=== PATIENT | female | born 1950 | race Hispanic/Latino ===

== ENCOUNTER → 2017-07-11 | Outpatient (CLI) | payer MEDICARE ==
[~2017-07-11] MED LIST: CALCIUM600 MG PO; LIPITOR10 MG PO; LOSARTAN POTAS100 MG PO; METFORMIN HCL500 M1 PO; TYLENOL # 31 EA; VESICARE5 MG PO; VITAMIN D32000 UNI1 PO
--- NOTE | 2017-07-18 10:25 | Diagnostic Imaging Report ---
#[id number] - [facility] #BILATERAL DIGITAL SCREENING MAMMOGRAM WITH CAD: 07/11/2017 CLINICAL: Routine screening. No prior exams were available for comparison. Current study contains 4 films. The tissue of both breasts is predominantly fatty. Current study was also evaluated with a Computer Aided Detection (CAD) system. Benign calcifications in the right axilla. No significant masses, calcifications, or other findings are seen in either breast. IMPRESSION: BENIGN There is no mammographic evidence of malignancy. A 1 year screening mammogram is recommended. The patient will be notified by letter of the results. Rickey Barlow Jr., D.O. cw/:07/15/2017 14:51:49 Personnel Supervisor: Chanell COLEMAN(R)(M), [facility] letter sent: Normal Exam Mammogram BI-RADS: 2 Benign
== END ==
LOC: MAMMO 09:22
PROVIDERS: ATTEND Obstetrics & Gynecology Obstetrics
DX: Z12.31 Encounter for screening mammogram for malignant neoplasm of breast (principal)

== ENCOUNTER 2018-12-09 01:25 | Emergency (ER) | payer MEDICARE ==
[~2018-12-09] VITALS: Ht 149.9 cm; Wt 74.8 kg
[~2018-12-09 01:25] MED LIST changes: +ARICEPT5 MG PO; +COLACE100 M1 PO; +IBUPROFEN600 MG PO; +MACROBID 100 M100 MG PO; +NAMENDA10 MG; +PRAVASTATIN SOD40 MG; +PYRIDIUM100 MG PO; +TYLENOL WITH C1 EACH PO
== END 2018-12-09 02:21 | disposition home or self-care (01) ==
LOC: FSED 01:25
DX: S90.461A Insect bite (nonvenomous), right great toe, initial encounter (principal); L03.031 Cellulitis of right toe
CPT/HCPCS: 99282

== ENCOUNTER 2021-09-23 17:11 | Emergency (ER) | payer MEDICARE ==
[~2021-09-23] VITALS: Ht 149.9 cm; Wt 74.8 kg
[2021-09-23 18:13] LABS: CLARITY,URINE HAZY (CLEAR); COLOR,URINE YELLOW (YELLOW); KETONES,URINE NEGATIVE (NEGATIVE); LEUKOCYTE ESTERASE ,URINE NEGATIVE (NEGATIVE); NITRITE,URINE NEGATIVE (NEGATIVE); PROTEIN,URINE DIPSTICK NEGATIVE (NEGATIVE); URINE UROBILINOGEN 0.2 mg/dL (0.2 - 1)
[2021-09-23 18:18] LABS: BASOPHILS # (AUTO) 0.1 (0.0-0.1); BASOPHILS % 0.6 % (0.0-1.0); EOSINOPHILS # (AUTO) 0.4 (0.0-0.4); EOSINOPHILS % 4.6 % (0.0-6.0); HEMATOCRIT 33.2 % (34.2-44.1); HEMOGLOBIN 10.8 g/dL (12.0-16.0); LYMPHOCYTES # (AUTO) 1.5 (1.0-3.2); LYMPHOCYTES % 18.4 % (18.0-39.1); MEAN CORPUSCULAR HEMOGLOBIN 30.3 pg (28-32); MEAN CORPUSCULAR HGB CONC 32.5 g/dL (31-35); MONOCYTES # (AUTO) 0.7 (0.2-0.8); MONOCYTES % 8.8 % (4.4-11.3); NEUTROPHILS # (AUTO) 5.6 (2.1-6.9); NEUTROPHILS % 67.4 % (38.7-80.0); PLATELET COUNT 217 x10e3/uL (140-360); RED BLOOD COUNT 3.57 x10e6/uL (3.6-5.1); RED CELL DISTRIBUTION WIDTH 13.5 % (11.7-14.4)
[2021-09-23 18:24] LABS: BACTERIA,URINE MODERATE /HPF; EPITHELIAL CELLS,URINE MANY /LPF
[2021-09-23 18:37] LABS: ALBUMIN 3.4 g/dL (3.5-5.0); ALBUMIN/GLOBULIN RATIO 0.9 (0.8-2.0); ANION GAP 13.6 mmol/L (8-16); CALCIUM 8.7 mg/dL (8.4-10.2); CREATININE, SERUM 1.42 mg/dL (0.57-1.11); POTASSIUM 3.6 mmol/L (3.5-5.1)
[2021-09-23] MEDS ORDERED: IOPAMIDOL 370 MG/ML 100 ML INFUS..BTL INJ ONE (18:55)
[2021-09-23] MEDS ORDERED: SODIUM CHLORIDE 0.9% 1000ML 1,000 ML IV STA (19:23)
[2021-09-23] MEDS ORDERED: PROTONIX20 MG PO (20:13)
[2021-09-23 20:32] VITALS: BP 113/56
== END 2021-09-23 20:35 | disposition home or self-care (01) ==
LOC: ER 17:30
DX: K92.2 Gastrointestinal hemorrhage, unspecified (principal); I10 Essential (primary) hypertension; E11.9 Type 2 diabetes mellitus without complications
CPT/HCPCS: 36415; 74174; 80053; 81001; 83690; 85025; 93005; 99284; Q9967

== ENCOUNTER 2023-03-11 17:41 | Emergency (ER) | payer MEDICARE ==
[~2023-03-11] VITALS: Ht 149.9 cm; Wt 64.2 kg
[~2023-03-11 17:41] MED LIST changes: +PROTONIX20 MG PO
[2023-03-11] MEDS ORDERED: GEMTESA75 MG (18:14)
[2023-03-11 20:00] VITALS: O2SAT 98
[2023-03-11] MEDS ORDERED: DICYCLOMINE HCL20 MG PO (20:07)
[2023-03-11] MEDS ORDERED: ONDANSETRON ODT4 MG PO (20:08)
== END 2023-03-11 20:29 | disposition home or self-care (01) ==
LOC: FSED 17:46
DX: R10.84 Generalized abdominal pain (principal); K80.20 Calculus of gallbladder without cholecystitis without obstruction; E11.65 Type 2 diabetes mellitus with hyperglycemia; I10 Essential (primary) hypertension; F03.90 Unspecified dementia, unspecified severity, without behavioral disturbance, psychotic disturbance, mood disturbance, and anxiety; E78.5 Hyperlipidemia, unspecified; K21.9 Gastro-esophageal reflux disease without esophagitis
CPT/HCPCS: 71046; 74176; 80048; 80076; 81003; 82553; 84484; 85025; 93005; 99284

== ENCOUNTER 2024-08-20 11:56 | Emergency (ER) | payer MEDICARE ==
[~2024-08-20] VITALS: Ht 149.9 cm; Wt 64.0 kg
[~2024-08-20 11:56] MED LIST changes: +DICYCLOMINE HCL20 MG PO; +GEMTESA75 MG; +ONDANSETRON ODT4 MG PO
[2024-08-20 12:02] VITALS: TEMP 97.9
[2024-08-20] MEDS: LIDOCAINE HCL 1% LOCAL INJ 20 ML VIAL INJ ONE (13:16)
[2024-08-20 14:02] LABS: BASOPHILS % 0.5 % (0.0-1.0); EOSINOPHILS # (AUTO) 0.1 (0.0-0.4); EOSINOPHILS % 1.7 % (0.0-6.0); HEMATOCRIT 38.8 % (34.2-44.1); LYMPHOCYTES % 11.8 % (18.0-39.1); MEAN CORPUSCULAR HGB CONC 33.5 g/dL (31-35); MEAN CORPUSCULAR VOLUME 89.6 fL (81-99); MONOCYTES # (AUTO) 0.4 (0.2-0.8); MONOCYTES % 5.5 % (4.4-11.3); NEUTROPHILS # (AUTO) 6.5 (2.1-6.9); NEUTROPHILS % 80.3 % (38.7-80.0); PLATELET COUNT 235 x10e3/uL (140-360); RED BLOOD COUNT 4.33 x10e6/uL (3.6-5.1); RED CELL DISTRIBUTION WIDTH 13.7 % (11.7-14.4); WHITE BLOOD COUNT 8.06 x10e3/uL (4.8-10.8)
[2024-08-20] MEDS: TETANUS/DIPHTHERIA TOX ADULT 0.5 ML SYR IM ONE (14:14)
[2024-08-20 14:17] LABS: INR 1.04; PROTHROMBIN TIME 14.2 seconds (11.9-14.5)
[2024-08-20] MEDS: SODIUM CHLORIDE 0.9% IV ONE (14:21)
[2024-08-20] MEDS: LEVETIRACETAM IV ONE (14:21)
[2024-08-20 14:24] LABS: ALBUMIN 3.8 g/dL (3.5-5.0); ANION GAP 12.7 mmol/L (8-16); BILIRUBIN,TOTAL 0.6 mg/dL (0.2-1.2); CALCIUM 9.4 mg/dL (8.4-10.2); CREATININE, SERUM 0.97 mg/dL (0.57-1.11); POTASSIUM 3.7 mmol/L (3.5-5.1); TOTAL PROTEIN 7.6 g/dL (6.5-8.1)
[2024-08-20 15:00] VITALS: PULSE 54; RESP 16; O2SAT 97
== END 2024-08-20 16:20 | disposition other institution (70) ==
LOC: ER 12:28
DX: S01.01XA Laceration without foreign body of scalp, initial encounter (principal); S06.5X0A Traumatic subdural hemorrhage without loss of consciousness, initial encounter; W18.39XA Other fall on same level, initial encounter; Y93.01 Activity, walking, marching and hiking; Y92.89 Other specified places as the place of occurrence of the external cause; I10 Essential (primary) hypertension; E11.9 Type 2 diabetes mellitus without complications; E78.5 Hyperlipidemia, unspecified; K21.9 Gastro-esophageal reflux disease without esophagitis; F03.90 Unspecified dementia, unspecified severity, without behavioral disturbance, psychotic disturbance, mood disturbance, and anxiety; R32 Unspecified urinary incontinence
CPT/HCPCS: 12002; 36415; 70450; 72125; 80053; 84484; 85025; 85610; 90471; 90714; 93005; 99284; J1953; J2003; J7050

== ENCOUNTER 2024-08-27 13:38 | Emergency (ER) | payer MEDICARE ==
[~2024-08-27] VITALS: Ht 149.9 cm; Wt 64.0 kg
[2024-08-27 15:07] VITALS: PULSE 77; RESP 18; TEMP 98.4; O2SAT 98
== END 2024-08-27 15:13 | disposition home or self-care (01) ==
LOC: ER 14:49
DX: Z48.02 Encounter for removal of sutures (principal)
CPT/HCPCS: 99282